=== PATIENT | male | born 1980 | race Caucasian/White ===

== ENCOUNTER 2016-10-21 10:36 | Emergency (ER) | payer OTHER ==
[2016-10-21 10:40] VITALS: BP 146/91; PULSE 72; TEMP 98.4; BMI 34.3
[2016-10-21] MEDS ORDERED: ALBUTEROL SO4 2.5/IPRATROPIUM 0.5 INH SOL 3 ML VIAL.NEB. NEB ONE ×2 (11:24→11:33)
[2016-10-21] MEDS ORDERED: predniSONE 20 MG TABLET (UD) PO ONE (11:32)
[2016-10-21] MEDS ORDERED: predniSONE 20 MG TABLET (UD) ONE (11:36)
--- NOTE | 2016-10-21 11:42 | PDOC ---
History of Present Illness - General Chief Complaint: Cold Symptoms Stated Complaint: SOB (ASTHMA) Time Seen by Provider: 10/21/16 10:51 History Source: Patient Exam Limitations: No Limitations - History of Present Illness Initial Comments: 10/21/16 11:33 Patient is a 36-year-old male no significant medical history currently no medication presents with greater than 2 week history of bronchospasm, cough, shortness of breath. Patient reports using his daughter's albuterol with good result. Past Medical History: Denies. Allergies: No known allergies Medications: Family History: Non-contributory Social History: Denies smoking, alcohol use, or IVDU Review of Systems GENERAL/CONSTITUTIONAL: No fever or chills. No weakness. No weight change. HEAD, EYES, EARS, NOSE AND THROAT: No change in vision. No ear pain or discharge. No sore throat. CARDIOVASCULAR: No chest pain or shortness of breath. RESPIRATORY: Cough and wheezing, bronchospasm, no hemoptysis. GASTROINTESTINAL: No nausea, vomiting, diarrhea or constipation. No rectal bleeding. GENITOURINARY: No dysuria, frequency, or change in urination. MUSCULOSKELETAL: No joint or muscle swelling or pain. No neck or back pain. SKIN: No rash or easy bruising. NEUROLOGIC: No headache, vertigo, loss of consciousness, or loss of sensation. HEMATOLOGIC/LYMPHATIC: No anemia, easy bleeding, or history of blood clots. ALLERGIC/IMMUNOLOGIC: No hives or skin allergy. No latex allergy. Physical Exam: GENERAL: The patient is awake, alert, and fully oriented, in no acute distress. HEAD: Normal with no signs of trauma. EYES: Pupils equal, round and reactive to light, extraocular movements intact, sclera anicteric, conjunctiva clear. ENT: Ears normal, nares patent, oropharynx clear without exudates. Moist mucous membranes. No uvula deviation NECK: Normal range of motion, supple without lymphadenopathy, JVD, or masses. LUNGS: Breath sounds equal, clear to auscultation bilaterally. No wheezes, and no crackles. HEART: Regular rate and rhythm, normal S1 and S2 without murmur, rub or gallop. ABDOMEN: Soft, nontender, normoactive bowel sounds. No guarding, no rebound. No masses. No bruising or abrasions MUSCULOSKELETAL: Normal range of motion, no edema. No clubbing or cyanosis. No cords, erythema, or tenderness. No CVA Tenderness. NEUROLOGICAL: Cranial nerves II through XII grossly intact. Normal speech, normal gait. SKIN: Warm, Dry, normal turgor, no rashes or lesions noted. Past History - Past Medical History Allergies/Adverse Reactions: Allergies Allergy/AdvReac Type Severity Reaction Status Date / Time No Known Allergies Allergy Verified 10/21/16 10:40 Home Medications: Ambulatory Orders Bisacodyl [Dulcolax] 10 mg PO HS PRN #2 tablet. 07/16/15 Naproxen [Naprosyn -] 500 mg PO BID PRN #30 tablet 07/16/15 Polyethylene Glycol 3350 [Miralax 255 gm Btl -] 17 gm PO DAILY #1 bottle Ranitidine [Zantac -] 150 mg PO BID PRN #30 tablet 07/16/15 Albuterol Sulfate Inhaler - [Ventolin Hfa Inhaler -] 2 inh PO Q4H #1 inh Azithromycin [Zithromax 250mg Tablets -] 250 mg PO UTDICT #6 tab 10/21/16 Loratadine [Claritin] 10 mg PO DAILY #15 tablet MDD 1 10/21/16 Prednisone [Deltasone -] 20 mg PO DAILY #5 tablet 10/21/16 Other medical history: DENIES - Surgical History Appendectomy: Yes - Psycho/Social/Smoking Cessation Hx Anxiety: No Suicidal Ideation: No Smoking History: Never smoked Have you smoked in the past 12 months: No Hx Alcohol Use: No Drug/Substance Use Hx: No Substance Use Type: None Hx Substance Use Treatment: No *Physical Exam - Vital Signs Last Vital Signs Temp Pulse Resp BP Pulse Ox 98.4 F 72 20 146/91 98 10/21/16 10:37 10/21/16 10:37 10/21/16 10:37 10/21/16 10:37 10/21/16 10:37 Medical Decision Making - Medical Decision Making 10/21/16 11:42 A/P: Patient with reactive airway, bronchospasm. Lungs are clear on auscultation with occasional expiratory wheezes. Combivent treatment given, patient states he responded well to his daughter's albuterol. Prednisone 60 mg by mouth 1 10/21/16 12:26 Ernestine did well to Combivent treatment will DC patient home on Claritin, a azithromycin, albuterol and prednisone patient with significant bronchospasm resolved after treatment. O2 sats are 100% on room air, patient breathing comfortably Patient is following up with change control specialist this week and PMD I discussed the physical exam findings, ancillary test results and final diagnoses with the patient. I answered all of the patient's questions. The patient was satisfied with the care received and felt comfortable with the discharge plan and treatment plan. The patient will call to arrange follow-up and will return to the Emergency Department with any new, persistent or worsening symptoms. *DC/Admit/Observation/Transfer Diagnosis at time of Disposition: Bronchitis - Discharge Dispostion Admit: No - Prescriptions Prescriptions: Loratadine [Claritin] 10 mg PO DAILY #15 tablet MDD 1 Prednisone [Deltasone -] 20 mg PO DAILY #5 tablet Albuterol Sulfate Inhaler - [Ventolin Hfa Inhaler -] 2 inh PO Q4H #1 inh Azithromycin [Zithromax 250mg Tablets -] 250 mg PO UTDICT #6 tab - Patient Instructions Printed Discharge Instructions: Acute Bronchitis, Acute Bronchitis ( Alternative Therapy) Additional Instructions: Keep head of bed elevated 45 when sleeping Albuterol every 4 hours as needed Followup in the primary care doctor's office in 2 days for evaluation. If any respiratory distress, increased cough, inability to drink, increased wheezing please return immediately to emergency department.
[2016-10-21] MEDS ORDERED: ALBUTEROL SO4 0.083% IH SOL 2.5 MG/3 ML VIAL.NEB. NEB ONE (12:01)
== END 2016-10-21 12:02 | disposition home or self-care (01) ==
LOC: JERFT 10:36
PROC: 3E0F7GC Introduction of Other Therapeutic Substance into Respiratory Tract, Via Natural or Artificial Opening (ICD-10-PCS; principal; 2016-10-21)
DX: J20.9 Acute bronchitis, unspecified (principal)
CPT/HCPCS: 94640; 99281-25

== ENCOUNTER 2017-02-02 07:54 | Emergency (ER) | payer OTHER ==
[2017-02-02 08:02] VITALS: BP 153/99; PULSE 68; TEMP 98; BMI 35.2
--- NOTE | 2017-02-02 08:03 | PDOC ---
History of Present Illness - General Chief Complaint: Back Pain Stated Complaint: BACK PAIN Time Seen by Provider: 02/02/17 08:03 Past History - Past Medical History Allergies/Adverse Reactions: Allergies Allergy/AdvReac Type Severity Reaction Status Date / Time No Known Allergies Allergy Verified 02/02/17 08:02 Home Medications: Ambulatory Orders Bisacodyl [Dulcolax] 10 mg PO HS PRN #2 tablet.dr 07/16/15 Naproxen [Naprosyn -] 500 mg PO BID PRN #30 tablet 07/16/15 Polyethylene Glycol 3350 [Miralax 255 gm Btl -] 17 gm PO DAILY #1 bottle Ranitidine [Zantac -] 150 mg PO BID PRN #30 tablet 07/16/15 Albuterol Sulfate Inhaler - [Ventolin Hfa Inhaler -] 2 inh PO Q4H #1 inh Azithromycin [Zithromax 250mg Tablets -] 250 mg PO UTDICT #6 tab 10/21/16 Loratadine [Claritin] 10 mg PO DAILY #15 tablet MDD 1 10/21/16 Prednisone [Deltasone -] 20 mg PO DAILY #5 tablet 10/21/16 - Surgical History Appendectomy: Yes - Psycho/Social/Smoking Cessation Hx Anxiety: No Suicidal Ideation: No Smoking History: Never smoked Have you smoked in the past 12 months: No Hx Alcohol Use: No Drug/Substance Use Hx: No Substance Use Type: None Hx Substance Use Treatment: No *Physical Exam - Vital Signs Last Vital Signs Temp Pulse Resp BP Pulse Ox 98 F 68 18 153/99 99 02/02/17 08:00 02/02/17 08:00 02/02/17 08:00 02/02/17 08:00 02/02/17 08:00
[2017-02-02] MEDS ORDERED: KETOROLAC TROMETHAMINE 60 MG/2 ML VIAL IM ONE (08:57)
[2017-02-02] MEDS ORDERED: KETOROLAC TROMETHAMINE 60 MG/2 ML VIAL ONE (08:59)
--- NOTE | 2017-02-02 09:06 | PDOC ---
History of Present Illness - General Chief Complaint: Back Pain Stated Complaint: BACK PAIN Time Seen by Provider: 02/02/17 08:03 History Source: Patient Exam Limitations: No Limitations - History of Present Illness Initial Comments: 02/02/17 09:01 36 yr male with no medical history presents with c/o low back pain for 2 weeks. Pt states pain is worse with moving, walking. no urinary or bowel complaints. Pt denies trauma or fall. 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 pt has no allergies denies any drug or ETOH use. Occurred: reports: other (2 weeks ) Severity: reports: mild Pain Location: reports: back Method of Injury: Yes: unknown Loss of Consciousness: no loss of consciousness Associated Symptoms (Fall): denies symptoms Past History - Past Medical History Allergies/Adverse Reactions: Allergies Allergy/AdvReac Type Severity Reaction Status Date / Time No Known Allergies Allergy Verified 02/02/17 08:02 Home Medications: Ambulatory Orders Methylprednisolone [Medrol Dose Cuco] 4 mg PO ASDIR #21 tablet 02/02/17 - Surgical History Appendectomy: Yes - Psycho/Social/Smoking Cessation Hx Anxiety: No Suicidal Ideation: No Smoking History: Never smoked Have you smoked in the past 12 months: No Hx Alcohol Use: No Drug/Substance Use Hx: No Substance Use Type: None Hx Substance Use Treatment: No Trauma Specific PMHX - Complaint Specific PMHX Arthritis: No Back Injury: No Neck Injury: No Hx Sacro Iliac Joint Dysfunction: No Review of Systems - Review of Systems Able to Perform ROS?: Yes Is the patient limited [place] proficient: No Constitutional: No: Symptoms Reported HEENTM: No: Symptoms Reported Respiratory: No: Symptoms reported Cardiac (ROS): No: Symptoms Reported ABD/GI: No: Symptoms Reported : No: Symptoms Reported Musculoskeletal: Yes: See HPI, Back Pain Integumentary: No: Symptoms Reported *Physical Exam - Vital Signs Last Vital Signs Temp Pulse Resp BP Pulse Ox 98 F 68 18 153/99 99 02/02/17 08:00 02/02/17 08:00 02/02/17 08:00 02/02/17 08:00 02/02/17 08:00 - Physical Exam General Appearance: Yes: Nourished, Appropriately Dressed HEENT: positive: EOMI, TANYA, Normal ENT Inspection, TMs Normal, Pharynx Normal Neck: positive: Supple. negative: Tender Respiratory/Chest: positive: Lungs Clear, Normal Breath Sounds. negative: Chest Tender Cardiovascular: positive: Regular Rhythm, Regular Rate Gastrointestinal/Abdominal: positive: Normal Bowel Sounds, Soft. negative: Tender Rectal Exam: positive: deferred (pt refused) Musculoskeletal: positive: Normal Inspection, Other (FROM pain reproduced with hip rotation and bending forward, no spinal tenderness ). negative: CVA Tenderness, CVA Tenderness (R), CVA Tenderness (L), Decreased Range of Motion, Muscle Spasm, Vertebral Tenderness Extremity: positive: Normal Capillary Refill, Normal Inspection, Normal Range of Motion, Other (neg SLR bilaterally ). negative: Tender Integumentary: positive: Normal Color, Dry, Warm Neurologic: positive: Fully Oriented, Alert, Normal Mood/Affect, Normal Response , Motor Strength 5/5. negative: Numbness, Sensory Deficit ED Treatment Course - RADIOLOGY Radiology Studies Ordered: Category Date Time Status SPINE-LUMBAR SACRAL [RAD] Stat Radiology 02/02/17 08:56 Ordered Medical Decision Making - Medical Decision Making 02/02/17 09:04 cc: low back pain 2 weeks worse with walking no trauma , pt works long hours as gravel truck driver no fever chills no abd lara neg saddle anesthesia neg urianry or bowel complaints. pt is asking for antibitoics "just in case he has infection" I have discussed that infection is less likely as pt has no other contributing factors for infection will check UA, toradol for pain, lumbar spine xray pt is ambulating freely no distress. *DC/Admit/Observation/Transfer Diagnosis at time of Disposition: Low back pain Qualifiers: Chronicity: acute Back pain laterality: bilateral Sciatica presence: without sciatica Qualified Code(s): M54.5 - Low back pain - Discharge Dispostion Disposition: HOME Condition at time of disposition: Good - Prescriptions Prescriptions: Methylprednisolone [Medrol Dose Cuco] 4 mg PO ASDIR #21 tablet - Referrals Referrals: Lam Fish MD [Staff Physician] - - Patient Instructions Additional Instructions: apply Icy Hot back patches (over the counter) to lower back take the medrol dose pack as directed follow with the orthopedist Dr. Fish for follow up next week no heavy lifting or bending until symptoms have improved return if any worsening symptoms
[2017-02-02 09:13] LABS: URINE APPEARANCE CLEAR; URINE BILIRUBIN NEGATIVE (NEGATIVE); URINE BLOOD NEGATIVE (NEGATIVE); URINE COLOR LTYELLOW; URINE GLUCOSE (UA) NEGATIVE (NEGATIVE); URINE KETONE NEGATIVE (NEGATIVE); URINE LEUK ESTERASE NEGATIVE (NEGATIVE); URINE NITRITE NEGATIVE (NEGATIVE); URINE PROTEIN NEGATIVE (NEGATIVE); URINE UROBILINOGEN NEGATIVE mg/dL (0.2-1.0)
== END 2017-02-02 09:42 | disposition home or self-care (01) ==
LOC: JERFT 07:54
PROC: 3E0233Z Introduction of Anti-inflammatory into Muscle, Percutaneous Approach (ICD-10-PCS; principal; 2017-02-02)
DX: M54.5 Low back pain (principal)
CPT/HCPCS: 72100-TC; 81003; 87086; 96372; 99281-25

== ENCOUNTER 2017-06-19 19:39 | Emergency (ER) | payer OTHER ==
[2017-06-19 20:22] VITALS: BP 128/72; TEMP 98.7; BMI 34.3
[2017-06-19] MEDS ORDERED: ONDANSETRON *ODT* 4 MG TABLET SL ONE (20:24)
--- NOTE | 2017-06-19 20:24 | PDOC ---
Rapid Medical Evaluation Time Seen by Provider: 06/19/17 20:18 Medical Evaluation: Allergies Allergy/AdvReac Type Severity Reaction Status Date / Time No Known Allergies Allergy Verified 02/02/17 08:02 06/19/17 20:18 The patient presents with a chief complaint of: One day of nausea, vomiting, and diarrhea. Also admits to crampy abdominal pain. Unable to keep anything down today. No recent travel, new foods or antibiotic use. Hx of appendectomy I have performed a brief in-person evaluation of this patient; Pertinent physical exam findings:ambulatory, breathing easily. TTP RLQ, suprapubic area, LLQ. Soft, no guarding I have ordered the following: CBC, CMP, PT/INR, Lipase, zofran The patient will proceed to the ED for further evaluation.
[2017-06-19 20:52] LABS: URINE APPEARANCE CLEAR; URINE BILIRUBIN NEGATIVE (NEGATIVE); URINE BLOOD NEGATIVE (NEGATIVE); URINE COLOR YELLOW; URINE GLUCOSE (UA) NEGATIVE (NEGATIVE); URINE KETONE NEGATIVE (NEGATIVE); URINE LEUK ESTERASE NEGATIVE (NEGATIVE); URINE NITRITE NEGATIVE (NEGATIVE); URINE PROTEIN NEGATIVE (NEGATIVE); URINE UROBILINOGEN NEGATIVE mg/dL (0.2-1.0)
[2017-06-19 21:14] LABS: INR 1.06 (0.82-1.09)
[2017-06-19 21:21] LABS: ALBUMIN 4.4 g/dl (3.4-5.0); ANION GAP 7 (8-16); BILIRUBIN,TOTAL 0.5 mg/dL (0.2-1.0); BLOOD UREA NITROGEN 9 mg/dL (7-18); CALCIUM 8.9 mg/dL (8.5-10.1); CHLORIDE 104 mmol/L (98-107); CO2 29 mmol/L (21-32); CREATININE 0.9 mg/dL (0.7-1.3); GLUCOSE,RANDOM 96 mg/dL (74-106); POTASSIUM 4.1 mmol/L (3.5-5.1); SGOT/AST 28 U/L (15-37); SGPT/ALT 55 U/L (12-78); SODIUM 140 mmol/L (136-145); TOT PROT 7.4 g/dl (6.4-8.2)
[2017-06-19 21:22] LABS: ALK PHOS 80 U/L (45-117)
[2017-06-19] MEDS ORDERED: ONDANSETRON 4 MG/2 ML VIAL IVPUSH ONE (21:39)
[2017-06-19] MEDS ORDERED: KETOROLAC TROMETHAMINE 15 MG/ML VIAL IVPUSH ONE (21:39)
[2017-06-19] MEDS ORDERED: FAMOTIDINE 20 MG/50 ML IVPB 20 MG/50 ML MG IVPB ONE ×2 (21:39→22:15)
[2017-06-19] MEDS ORDERED: SODIUM CHLORIDE 0.9% 1000 ML INFUS.BAG IV ONE (21:39)
--- NOTE | 2017-06-19 21:45 | PDOC ---
History of Present Illness - General History Source: Patient Exam Limitations: No Limitations - History of Present Illness Initial Comments: 06/19/17 21:45 The patient is a 36 year old male, with a significant past medical history of appendicitis, who presents to the emergency department with diffuse lower abdominal pain, nausea, vomiting, and diarrhea for approximately 2 days. The patient reports his pain is localized to the lower abdomen which is constant and crampy in nature. Patient reports he has not been able to tolerate solids or fluids all day secondary to nausea, vomiting(nonbloody/nonbilious), and diarrhea. Patient denies any associated melena, hematochezia, or constipation. He denies any fever, chills, headache, or dizziness. He denies any dysuria, hematuria, frequency, or urgency. He denies any recent travel, sick contacts, heavy lifting, trauma, steroid use, new foods, or antibiotic use. Allergies: NKDA Past Surgical History: Appendectomy Social History: Non smoker. No ETOH or recreational drug use. <Yamilet James - Last Filed: 06/19/17 23:53> <Elida Menchaca - Last Filed: 06/20/17 00:06> - General Chief Complaint: Vomiting/Diarrhea Stated Complaint: VOMITING/DIARRHEA Time Seen by Provider: 06/19/17 20:18 Past History <Yamilet James - Last Filed: 06/19/17 23:53> - Past Medical History COPD: No - Surgical History Appendectomy: Yes - Suicide/Smoking/Psychosocial Hx Smoking History: Never smoked Have you smoked in the past 12 months: No Hx Alcohol Use: No Drug/Substance Use Hx: No Substance Use Type: None Hx Substance Use Treatment: No <Elida Menchaca - Last Filed: 06/20/17 00:06> - Past Medical History Allergies/Adverse Reactions: Allergies Allergy/AdvReac Type Severity Reaction Status Date / Time No Known Allergies Allergy Verified 06/19/17 20:20 Home Medications: Ambulatory Orders Ibuprofen [Motrin -] 600 mg PO TID PRN #15 tablet 06/20/17 Ondansetron [Zofran Odt -] 4 mg SL TID PRN #10 od.tablet 06/20/17 Review of Systems - Review of Systems Able to Perform ROS?: Yes Comments:: 06/19/17 21:45 GENERAL/CONSTITUTIONAL: No fever or chills. No weakness. HEAD, EYES, EARS, NOSE AND THROAT: No change in vision. No ear pain or discharge. No sore throat. GASTROINTESTINAL: Yes lower abdominal pain, nausea, vomiting, diarrhea. No constipation, melena, and hematochezia. GENITOURINARY: No dysuria, frequency, or change in urination. CARDIOVASCULAR: No chest pain or shortness of breath. RESPIRATORY: No cough, wheezing, or hemoptysis. MUSCULOSKELETAL: No joint or muscle swelling or pain. No neck or back pain. SKIN: No rash NEUROLOGIC: No headache, vertigo, loss of consciousness, or change in strength/ sensation. ENDOCRINE: No increased thirst. No abnormal weight change. HEMATOLOGIC/LYMPHATIC: No anemia, easy bleeding, or history of blood clots. ALLERGIC/IMMUNOLOGIC: No hives or skin allergy. <Yamilet James - Last Filed: 06/19/17 23:53> *Physical Exam - Vital Signs Last Vital Signs Temp Pulse Resp BP Pulse Ox 98.7 F 128/72 100 06/19/17 20:20 06/19/17 20:20 06/19/17 20:20 - Physical Exam Comments: 06/19/17 21:45 Constitutional: Awake, alert, oriented. No acute distress. Head: Normocephalic. Atraumatic Eyes: PERRL. EOMI. Conjunctivae are not pale. ENT: Mucous membranes are moist and intact. Posterior pharynx without exudates or erythema. Uvula midline. Neck: Supple. Full ROM. No lymphadenopathy. Cardiovascular: Regular rate. Regular rhythm. S1, S2 regular. Distal pulses are 2+ and symmetric. Pulmonary/Chest: No evidence of respiratory distress. Clear to auscultation bilaterally No wheezing, rales or rhonchi. Abdominal: Diffuse lower abdominal tenderness. Soft and non-distended. No rebound, guarding or rigidity. No organomegaly. No palpable masses. Good bowel sounds. Back: No CVA tenderness. Musculoskeletal: No edema. No cyanosis. No clubbing. Full range of motion in all extremities. No calf tenderness. Radial/pedal pulses are intact and 2+ bilaterally Skin: Skin is warm and dry. No petechiae. No purpura. Neurological: Alert and oriented to person, place, and time. Cranial nerves II -XII are grossly intact. Normal speech. Strength is grossly symmetric. No sensory deficits. Psychiatric: Good eye contact. Normal interaction, affect and behavior. <JamesYamilet boyle - Last Filed: 06/19/17 23:53> - Vital Signs Last Vital Signs Temp Pulse Resp BP Pulse Ox 98.7 F 128/72 100 06/19/17 20:20 06/19/17 20:20 06/19/17 20:20 <Elida Menchaca - Last Filed: 06/20/17 00:06> ED Treatment Course - LABORATORY CBC & Chemistry Diagram: 06/19/17 21:58 06/19/17 20:43 - ADDITIONAL ORDERS Additional order review: Laboratory Results 06/19/17 06/19/17 06/19/17 20:43 20:43 20:30 Sodium 140 Potassium 4.1 Chloride 104 Carbon Dioxide 29 Anion Gap 7 L BUN 9 D Creatinine 0.9 Creat Clearance w eGFR > 60 Random Glucose 96 Calcium 8.9 Total Bilirubin 0.5 D AST 28 D ALT 55 Alkaline Phosphatase 80 Total Protein 7.4 Albumin 4.4 Lipase 62 L Urine Color Yellow Urine Appearance Clear Urine pH 6.0 Ur Specific [place] 1.017 Urine Protein Negative Urine Glucose (UA) Negative Urine Ketones Negative Urine Blood Negative Urine Nitrite Negative Urine Bilirubin Negative Urine Urobilinogen Negative Ur Leukocyte Esterase Negative - RADIOLOGY Radiograph Interpretation: 06/19/17 23:53 EXAM: CT Abdomen and Pelvis INTERPRETED BY: Dr. Olson REVIEWED BY: Dr. Menchaca IMPRESSION: The visualized lung bases are unremarkable. The heart is not enlarged. There is a 2.2 x 1.8 cm hypodense lesion within the right atrium, abutting the interatrial septum (image 13 of series 3), likely similar in size to the prior CT. The liver is normal in size and contour. Subcentimeter hypoattenuating lesion in the left hepatic lobe is too small to characterize, unchanged in size. The gallbladder is not pathologically distended. There is no biliary ductal dilatation. The pancreas is unremarkable. Normal size spleen, with no focal lesions. There is no mass or nodule in the adrenal glands. The kidneys are normal in size with symmetric enhancement. There is no hydroureteronephrosis. There is focal cortical thinning in the posterior upper pole of the right kidney which may be the sequela of prior infection A 2.2 x 1.7 cm right renal cortical cyst is unchanged in size subcentimeter cortical hypodensities within both kidneys are too small to characterize, similar in size to the prior exam. Normal caliber abdominal aorta. No pathologically enlarged lymph nodes by CT size criteria within the abdomen or pelvis. Evaluation of the bowel is somewhat limited without enteric contrast. No dilated loops of large or small bowel to suggest obstruction. Status post appendectomy. The entire colon is underdistended, limiting evaluation of the colonic wall. There is no free intraperitoneal air or ascites. The urinary bladder is underdistended, limiting evaluation. The prostate gland is not enlarged. There is a very small fat-containing left inguinal hernia. The visualized osseous structures are unremarkable. SUMMARY: 1. No evidence of bowel obstruction. Majority of the small bowel and colon are underdistended, limiting evaluation of the wall. No definite bowel wall thickening to suggest enterocolitis. Please correlate clinically. 2. A 2.2 x 1.8 cm round hypodense lesion within the right atrium, abutting the interatrial septum, grossly similar in size dating back to 06/17/2015 CT. Further evaluation with nonemergent echocardiogram is recommended. - Medications Given in the ED: ED Medications Discontinued Medications Generic Name Dose Route Start Last Admin Trade Name Freq PRN Reason Stop Dose Admin Ondansetron HCl 4 mg 06/19/17 20:24 06/19/17 20:50 Zofran Odt - SL 06/19/17 20:25 4 mg ONCE ONE Administration <Yamilet James - Last Filed: 06/19/17 23:53> - LABORATORY CBC & Chemistry Diagram: 06/19/17 21:58 06/19/17 20:43 - ADDITIONAL ORDERS Additional order review: Laboratory Results 06/19/17 06/19/17 06/19/17 20:43 20:43 20:30 Sodium 140 Potassium 4.1 Chloride 104 Carbon Dioxide 29 Anion Gap 7 L BUN 9 D Creatinine 0.9 Creat Clearance w eGFR > 60 Random Glucose 96 Calcium 8.9 Total Bilirubin 0.5 D AST 28 D ALT 55 Alkaline Phosphatase 80 Total Protein 7.4 Albumin 4.4 Lipase 62 L Urine Color Yellow Urine Appearance Clear Urine pH 6.0 Ur Specific [place] 1.017 Urine Protein Negative Urine Glucose (UA) Negative Urine Ketones Negative Urine Blood Negative Urine Nitrite Negative Urine Bilirubin Negative Urine Urobilinogen Negative Ur Leukocyte Esterase Negative - RADIOLOGY Radiology Studies Ordered: Category Date Time Status ABDOMEN & PELVIS CT WITH CONTR [CT] Stat CT Scan 06/19/17 21:40 Ordered - Medications Given in the ED: ED Medications Discontinued Medications Generic Name Dose Route Start Last Admin Trade Name Rocio PRN Reason Stop Dose Admin Ondansetron HCl 4 mg 06/19/17 20:24 06/19/17 20:50 Zofran Odt - SL 06/19/17 20:25 4 mg ONCE ONE Administration <Elida Menchaca - Last Filed: 06/20/17 00:06> Medical Decision Making - Medical Decision Making 06/19/17 21:40 a/p: 36yo male with n/v/d x 1 day and lower abd pain -suspect poss diverticulitis vs colitis vs gastroenteritiis -tender to LLQ -will check labs, ct abd/pelvis -ivf hydration -will monitor and reassess 06/20/17 00:00 pt feeling much better requesting to go home will give zofran and motrin for pain recommended BRAT diet and liquids discussed all reasons to return to the ED and need for follow up discussed CT findings of incidental R atrial cyst - will give PMD and cardio follow up answered all questions <Elida Menchaca - Last Filed: 06/20/17 00:06> *DC/Admit/Observation/Transfer - Attestations Scribe Attestion: 06/19/17 21:46 Documentation prepared by Yamilet James, acting as medical education coordinator for Elida Menchaca DO. <Yamilet James - Last Filed: 06/19/17 23:53> - Discharge Dispostion Admit: No - Attestations Physician Attestion: 06/20/17 00:06 I, Dr. Elida Menchaca DO, attest that this document has been prepared under my direction and personally reviewed by me in its entirety. I further attest, that it accurately reflects all work, treatment, procedures and medical decision -making performed by me. <Elida Menchaca - Last Filed: 06/20/17 00:06> Diagnosis at time of Disposition: Abdominal pain, Nausea and vomiting, Diarrhea - Discharge Dispostion Disposition: HOME Condition at time of disposition: Stable - Prescriptions Prescriptions: Ibuprofen [Motrin -] 600 mg PO TID PRN #15 tablet PRN Reason: Pain Ondansetron [Zofran Odt -] 4 mg SL TID PRN #10 od.tablet PRN Reason: Nausea - Referrals Referrals: Andres Long MD [Staff Physician] - Garrett Tam MD [Staff Physician] - Mauricio Jones MD [Staff Physician] - - Patient Instructions Printed Discharge Instructions: DI for Nausea -- Adult, DI for Vomiting -- Adult, DI for Diarrhea and Traveler's Diarrhea -- Adult Additional Instructions: Please take all meds as prescribed. Please follow the BRAT diet - bananas, rice , apple sauce, and toast. Please drink plenty of fluids. Please return to the ED with any further questions. Please me an appointment to see the cardiology for the ct finding and also follow up with the PMD in 2 days. - Post Discharge Activity Forms/Work/School Notes: Back to Work
[2017-06-19] MEDS ORDERED: ONDANSETRON 4 MG/2 ML VIAL ONE ×2 (21:46→21:47)
[2017-06-19] MEDS ORDERED: KETOROLAC TROMETHAMINE 15 MG/ML VIAL ONE (21:46)
[2017-06-19 22:11] LABS: BASO % 0.5 % (0-2.0); EOS % 0.3 % (0-4.5); HEMATOCRIT 47.4 % (35.4-49); LYMPH % 22.1 % (8-40); MCH 30.9 pg (25.7-33.7); MCHC 33.6 g/dl (32.0-35.9); MEAN CELL VOLUME 91.9 fl (80-96); MEAN PLT VOLUME 8.9 fl (7.5-11.1); MONO % 7.4 % (3.8-10.2); NEUT % 69.7 % (42.8-82.8); PLATELET COUNT 274 K/MM3 (134-434); RBC 5.16 M/mm3 (4.00-5.60); RDW 13.8 % (11.9-15.9); WHITE BLOOD COUNT 11.1 K/mm3 (4.0-10.0)
== END 2017-06-20 00:32 | disposition home or self-care (01) ==
LOC: JER 19:39
PROC: 3E033GC Introduction of Other Therapeutic Substance into Peripheral Vein, Percutaneous Approach (ICD-10-PCS; principal; 2017-06-19)
PROC: 3E0333Z Introduction of Anti-inflammatory into Peripheral Vein, Percutaneous Approach (ICD-10-PCS; 2017-06-19)
PROC: 3E0337Z Introduction of Electrolytic and Water Balance Substance into Peripheral Vein, Percutaneous Approach (ICD-10-PCS; 2017-06-19)
DX: R10.9 Unspecified abdominal pain (principal); R11.2 Nausea with vomiting, unspecified; R19.7 Diarrhea, unspecified
CPT/HCPCS: 36415; 74177-TC; 80053; 81003; 83690; 85025; 85610; 99283-25

== ENCOUNTER 2018-12-11 08:23 | Emergency (ER) | payer OTHER ==
[2018-12-11 08:40] VITALS: TEMP 98.3; BMI 36.0
[2018-12-11] MEDS ORDERED: KETOROLAC TROMETHAMINE 60 MG/2 ML VIAL IM ONE (08:57)
[2018-12-11] MEDS ORDERED: KETOROLAC TROMETHAMINE 60 MG/2 ML VIAL ONE (09:00)
--- NOTE | 2018-12-11 09:02 | PDOC ---
History of Present Illness - General Chief Complaint: Back Pain Stated Complaint: LOWER BACK PAIN Time Seen by Provider: 12/11/18 08:47 History Source: Patient (lower back pain X 9 days) - History of Present Illness Pain Location: reports: back Past History - Travel Traveled outside of the country in the last 30 days: No Close contact w/someone who was outside of country & ill: No - Past Medical History Allergies/Adverse Reactions: Allergies Allergy/AdvReac Type Severity Reaction Status Date / Time No Known Allergies Allergy Verified 12/30/17 20:38 Home Medications: Ambulatory Orders Ibuprofen [Motrin -] 600 mg PO TID PRN #15 tablet 06/20/17 Ondansetron [Zofran Odt -] 4 mg SL TID PRN #10 od.tablet 06/20/17 Famotidine [Pepcid -] 20 mg PO DAILY #7 tablet 12/30/17 Ibuprofen 400 mg PO TID 5 Days #15 tablet 12/30/17 Ondansetron HCl [Zofran] 4 mg PO DAILY 5 Days #5 tablet 12/30/17 Cyclobenzaprine HCl [Flexeril 10 mg] 10 mg PO BID 10 Days #20 tablet 12/11/18 Naproxen [EC-Naprosyn] 375 mg PO BID 15 Days #30 tablet. 12/11/18 COPD: No - Surgical History Appendectomy: Yes - Immunization History Immunization Up to Date: No - Suicide/Smoking/Psychosocial Hx Smoking History: Never smoked Have you smoked in the past 12 months: No Information on smoking cessation initiated: No Hx Alcohol Use: No Drug/Substance Use Hx: No Substance Use Type: None Hx Substance Use Treatment: No Trauma Specific PMHX - Complaint Specific PMHX Arthritis: No Back Injury: No Neck Injury: No Hx Sacro Iliac Joint Dysfunction: No Review of Systems - Review of Systems Able to Perform ROS?: Yes Is the patient limited Kyr[place]z proficient: No Constitutional: No: Chills, Fever : No: Dysuria, Frequency, Flank Pain, Incontinence, Urgency Musculoskeletal: Yes: Back Pain. No: Joint Pain, Joint Swelling, Muscle Pain, Muscle Weakness, Joint Stiffness *Physical Exam - Vital Signs Last Vital Signs Temp Pulse Resp BP Pulse Ox 98.3 F 63 18 101/57 L 96 12/11/18 08:36 12/11/18 08:36 12/11/18 08:36 12/11/18 08:36 12/11/18 08:36 - Physical Exam General Appearance: Yes: Nourished HEENT: positive: EOMI, TANYA Respiratory/Chest: positive: Lungs Clear, Normal Breath Sounds Cardiovascular: positive: Regular Rhythm, Regular Rate, S1, S2 Musculoskeletal: positive: Other (+ paraspinal tenderness noted in LS spine) Extremity: positive: Normal Capillary Refill, Normal Inspection, Normal Range of Motion Neurologic: positive: ham trimmer II-XII NML intact, Fully Oriented, Alert, Normal Mood/ Affect, Normal Response, Motor Strength 09/21 Medical Decision Making - Medical Decision Making 12/11/18 09:02 Patient is a 38 years old male with chronic back pain presents with worsening pain to the lumbosacral region for the past 9 days. 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 He denies any recent trauma to the back denies any bladder or bowel incontinence or saddle anesthesia. Patient denies any UTI symptoms reports the pain radiates to his left leg. He has not followed up orthopedic as previously advised 2 years ago he is requesting an x-ray today. On examination patient has tenderness to the paraspinal muscles of the lumbosacral region there is no weakness in the lower extremities his gait is stable. Toradol given urinalysis will be check and patient will be referred to orthopedic lumbosacral imaging was also obtained *DC/Admit/Observation/Transfer Diagnosis at time of Disposition: Low back pain Qualifiers: Chronicity: chronic Back pain laterality: unspecified Sciatica presence: with sciatica Sciatica laterality: sciatica of left side Qualified Code(s): M54.42 - Lumbago with sciatica, left side; G89.29 - Other chronic pain - Discharge Dispostion Disposition: HOME Condition at time of disposition: Stable - Prescriptions Prescriptions: Cyclobenzaprine HCl [Flexeril 10 mg] 10 mg PO BID 10 Days #20 tablet Naproxen [EC-Naprosyn] 375 mg PO BID 15 Days #30 tablet. - Referrals Referrals: Garrett Tam MD [Primary Care Provider] - Robert Shelley MD [Staff Physician] - Oscar Temple MD [Staff Physician] - - Patient Instructions Printed Discharge Instructions: Low Back Pain Additional Instructions: Your urine test was negative today your xray was normal please follow up orthopedic clinic for further evaluation I discussed the physical exam findings, ancillary test results and final diagnoses with the patient. I answered all of the patient's questions. The patient was satisfied with the care received and felt comfortable with the discharge plan and treatment plan. The patient will call their primary care physician within 24 hours to arrange follow-up and will return to the Emergency Department with any new, persistant or worsening symptoms. - Post Discharge Activity
[2018-12-11 09:19] LABS: URINE APPEARANCE CLEAR; URINE BILIRUBIN NEGATIVE (NEGATIVE); URINE COLOR YELLOW; URINE GLUCOSE (UA) NEGATIVE (NEGATIVE); URINE KETONE NEGATIVE (NEGATIVE); URINE LEUK ESTERASE NEGATIVE (NEGATIVE); URINE NITRITE NEGATIVE (NEGATIVE); URINE PROTEIN NEGATIVE (NEGATIVE); URINE UROBILINOGEN 0.2 mg/dL (0.2-1.0)
[2018-12-11 09:46] VITALS: BP 118/69; PULSE 82
== END 2018-12-11 09:45 | disposition home or self-care (01) ==
LOC: JERFT 08:23
PROC: 3E0233Z Introduction of Anti-inflammatory into Muscle, Percutaneous Approach (ICD-10-PCS; principal; 2018-12-11)
DX: M54.42 Lumbago with sciatica, left side (principal); G89.29 Other chronic pain
CPT/HCPCS: 72100-TC-FY; 81003; 87086; 99282-25